=== PATIENT | male | born 1990 | race Caucasian/White ===

== ENCOUNTER 2016-07-30 09:06 | Emergency (ER) | payer OTHER ==
[~2016-07-30] VITALS: Ht 167.6 cm; Wt 74.5 kg
[2016-07-30 09:10] VITALS: Ht 167.6 cm; Wt 74.5 kg
[2016-07-30] MEDS ORDERED: AMO500 PO (09:44)
[2016-07-30] MEDS ORDERED: NAPR-260 PO (09:44)
--- NOTE | 2016-07-30 09:51 | ERD ---
ER Documentation Chief Complaint Date/Time DATE: 07/30/16 TIME: 09:50 Chief Complaint sore throat since yesterday HPI 26-year-old male comes emergency department with sore throat, associated fever, swelling in the left side of the neck 1 day. Patient states that the pain is worse when he tries to swallow however he has no difficulty swallowing or voice changes or drooling. He denies any recent cough with this. ROS All systems reviewed and are negative except as per history of present illness. Medications Home Meds Active Scripts Naproxen* (Naprosyn*) 500 Mg Tablet, 500 MG PO BID Y for PAIN AND/OR INFLAMMATION, #30 TAB Prov:JOSE JO PA-C 07/30/16 Amoxicillin* (Amoxicillin*) 500 Mg Cap, 500 MG PO TID for 10 Days, CAP Prov:JOSE JO PA-C 07/30/16 Allergies Allergies: Coded Allergies: No Known Allergy (Unverified , 07/30/16) PMhx/Soc Medical and Surgical Hx: pt denies Medical Hx, pt denies Surgical Hx Hx Alcohol Use: No Hx Substance Use: No Hx Tobacco Use: No Smoking Status: Never smoker Physical Exam Vitals Vital Signs Date Time Temp Pulse Resp B/P Pulse Ox O2 Delivery O2 Flow Rate FiO2 07/30/16 09:10 98.3 95 18 137/89 99 Physical Exam General: Well-developed, well-nourished. The patient appears in no acute distress. HEENT: Head is normocephalic, atraumatic. No scleral icterus. TMs are normal, oropharynx has exudative tonsil on the left side, uvula is midline, no masses. There is no trismus or voice changes. Patient has associated cervical chain lymphadenopathy in the left thigh, no abscess or mass. Neck: Supple. Nontender. No meningismus. Lungs: Clear to auscultation. Normal air movement. Heart: Regular rate and rhythm. S1 and S2 are normal. No murmurs, gallops, or rubs. Abdomen: Nondistended. Extremities: No clubbing or cyanosis. Moving extremities x 4. No weakness. Neurologic: Alert and oriented 3. No focal deficits. Normal speech and gait. Skin: Normal turgor. No rash or lesions. Procedures/MDM 18-year-old male comes in with history of fever, patient has exudate on examination positive cervical lymphadenopathy and lack of history of cough. Patient will be treated for presumed strep pharyngitis. There are no other associated URI symptoms. Examination shows an inflamed oropharynx however there is no evidence of an abscess, or airway threatening process. Patient will be given antibiotics based on presumed diagnosis of strep pharyngitis based on the center criteria. He is to return for any worsening or new symptoms. Departure Diagnosis: Primary Impression: Acute pharyngitis Condition: Good Patient Instructions: Pharyngitis, Strep (Presumed) Additional Instructions: Call your primary care doctor TOMORROW for an appointment during the next 1-2 days.See the doctor sooner or return here if your condition worsens before your appointment time. JOSE JO PA-C July 30, 2016 09:51
== END 2016-07-30 10:25 | disposition home or self-care (01) ==
LOC: FTE 09:06
DX: J02.9 Acute pharyngitis, unspecified (principal)
CPT/HCPCS: 99283